=== PATIENT | female | born 1970 | race Hispanic/Latino ===

== ENCOUNTER 2021-06-10 10:56 | Emergency (ER) | payer MEDICAID ==
[~2021-06-10] VITALS: Ht 162.6 cm; Wt 63.5 kg
[2021-06-10] MEDS ORDERED: METRONIDAZOLE 500 MG TAB PO NR (11:15)
[2021-06-10] MEDS ORDERED: DOXYCYCLINE HYCLATE TABLET 100 MG TAB PO ONE (11:15)
[2021-06-10] MEDS ORDERED: ONDANSETRON HCL 4 MG ORAL DISINTEGRATING TAB PO NR (11:15)
[2021-06-10] MEDS ORDERED: CEFTRIAXONE 1 GM VIAL IM NR (11:15)
[2021-06-10 11:21] LABS: CLARITY,URINE CLEAR (CLEAR); COLOR,URINE YELLOW (YELLOW); KETONES,URINE NEGATIVE (NEGATIVE); LEUKOCYTE ESTERASE ,URINE SMALL (NEGATIVE); NITRITE,URINE NEGATIVE (NEGATIVE); PROTEIN,URINE DIPSTICK NEGATIVE (NEGATIVE)
[2021-06-10 11:22] LABS: URINE UROBILINOGEN 0.2 mg/dL (0.2 - 1)
[2021-06-10 11:35] LABS: BACTERIA,URINE FEW /HPF; EPITHELIAL CELLS,URINE FEW /LPF; RBC,URINE >50 /HPF (0-5)
[2021-06-10] MEDS ORDERED: LIDOCAINE HCL 1% 2 ML AMP ONE (11:35)
[2021-06-10] MEDS ORDERED: DOXYCYCLINE HY100 MG PO (11:46)
== END 2021-06-10 13:20 | disposition home or self-care (01) ==
LOC: ER 11:01
DX: N89.8 Other specified noninflammatory disorders of vagina (principal); J45.909 Unspecified asthma, uncomplicated
CPT/HCPCS: 81001; 81025; 99283; J0696; J2001; Q0162